=== PATIENT | female | born 1955 | race African-American/Black ===

== ENCOUNTER 2018-11-08 10:38 | Emergency (ER) | payer MEDICARE ==
[~2018-11-08] VITALS: Ht 170.2 cm; Wt 95.3 kg
--- NOTE | 2018-11-08 11:47 | RAD ---
CHEST PA LATERAL Clinical indications: Syncope. COMPARISON: None available. Findings: No acute lung infiltrate or pleural effusion or pulmonary edema or lung mass or pneumothorax is seen. Old granulomatous disease is seen. The heart size, pulmonary vasculature, mediastinum and both tata are otherwise unremarkable. The osseous structures appear intact. Impression: No acute radiographic abnormality is seen. Electronically signed by: Roger Mcdonald MD (11/08/2018 11:44 AM) [id number]
[2018-11-08 11:57] LABS: BASO % 0 % (0-3); EOS # 0.1 x10^3/uL (0.0-0.7); EOS % 1 % (0-3); HEMATOCRIT 42.7 % (36.0-47.0); HEMOGLOBIN 13.6 g/dL (12.0-15.5); LYMPH # 3.3 x10^3/uL (1.0-4.8); LYMPH % 30 % (24-48); MEAN CORPUSCULAR HEMOGLOBIN 23 pg (25-35); MEAN CORPUSCULAR HGB CONC 32 g/dL (31-37); MEAN CORPUSCULAR VOLUME 72 fL (79-100); MONO # 0.8 x10^3/uL (0.0-1.1); MONO % 8 % (0-9); NEUT # 6.7 x10^3uL (1.8-7.7); NEUT % 61 % (31-73); PLATELET COUNT 283 x10^3/uL (140-400); RED BLOOD COUNT 5.92 x10^6/uL (3.50-5.40); RED CELL DISTRIBUTION WIDTH 13.7 % (11.5-14.5)
[2018-11-08 12:07] LABS: CALCIUM 9.8 mg/dL (8.5-10.1); CREATININE 1.1 mg/dL (0.6-1.0); GFR 60.3; POTASSIUM 3.9 mmol/L (3.5-5.1)
[2018-11-08 12:10] VITALS: BP 190/88
[2018-11-08] MEDS: IV NORMAL SALINE 1000ML BAG 1,000 ML IV ONE (12:10)
[2018-11-08 12:13] LABS: ALBUMIN 3.7 g/dL (3.4-5.0); ALBUMIN/GLOBULIN RATIO 0.8 (1.0-1.7); TOTAL BILIRUBIN 0.7 mg/dL (0.2-1.0); TOTAL PROTEIN 8.4 g/dL (6.4-8.2)
[2018-11-08] MEDS ORDERED: AMLO5TAB10 PO (12:38)
--- NOTE | 2018-11-08 12:38 | PHYS DOC ---
Past Medical History Past Medical History: Arthritis, Hypertension Past Surgical History: , Tubal ligation Alcohol Use: None Drug Use: None Adult General Chief Complaint Chief Complaint: SYNCOPE HPI HPI Patient is a 63 year old f who presents after syncopal episode. Patient with multiple complaints 1) patient with URI symptoms 2-3 days. Cough is nonproductive, no fever, no myalgias. Patient is been taking [id number] cold medication. She does not know if they contained Sudafed or other decongestants. #2. Patient reports onset of diffuse abdominal cramping with multiple episodes of diarrhea throughout all day yesterday. States that she also ate something for dinner to increase her nausea and diarrhea. States that she got up to the bathroom in the middle night and had syncopal episode. No head trauma. Unable to get into PCP today so presents the ER. Denies any headaches. Abdominal pain resolved. Has not had any diarrhea for the past few hours. No recent antibiotics. No GI bleed symptoms. Review of Systems Review of Systems Constitutional: Denies fever or chills [] Eyes: Denies change in visual acuity, redness, or eye pain [] HENT: Denies nasal congestion or sore throat [] Respiratory: Denies cough or shortness of breath [] Cardiovascular: No additional information not addressed in HPI [] GI: Denies abdominal pain, nausea, vomiting, bloody stools or diarrhea [] : Denies dysuria or hematuria [] Musculoskeletal: Denies back pain or joint pain [] Integument: Denies rash or skin lesions [] Neurologic: Denies headache, focal weakness or sensory changes [] Endocrine: Denies polyuria or polydipsia [] All other systems were reviewed and found to be within normal limits, except as documented in this note. Current Medications Current Medications Current Medications Medications (Trade) Dose Ordered Sig/Power Start Time Stop Time Status Last Admin Dose Admin Sodium Chloride 1,000 ml @ 1,000 mls/hr 1X ONCE 11/08/18 11:30 11/08/18 12:29 11/08/18 12:10 1,000 MLS/HR Allergies Allergies Allergies Coded Allergies Type Severity Reaction Last Updated Verified No Known Drug Allergies 01/31/14 No Physical Exam Physical Exam Constitutional: Well developed, well nourished, obese HENT: Normocephalic, atraumatic, Eyes: PERRLA, EOMI, Neck: no stridor. [] Cardiovascular:Heart rate regular rhythm, no murmur [] Lungs & Thorax: Bilateral breath sounds clear to auscultation [] Abdomen: Bowel sounds normal, soft, no tenderness, no masses, no pulsatile masses. [] Skin: Warm, dry, no erythema, no rash. [] Extremities: no edema. [] Neurologic: Alert and oriented X 3, no focal deficits noted. [] Psychologic: Affect normal, judgement normal, mood normal. [] Current Patient Data Vital Signs Vital Signs Date Time Temp Pulse Resp B/P (MAP) Pulse Ox O2 Delivery O2 Flow Rate FiO2 11/08/18 10:49 98.8 58 20 188/102 (130) 99 Room Air 98.8 Lab Values Laboratory Tests Test 11/08/18 11:49 White Blood Count 11.0 x10^3/uL (4.0-11.0) Red Blood Count 5.92 x10^6/uL (3.50-5.40) H Hemoglobin 13.6 g/dL (12.0-15.5) Hematocrit 42.7 % (36.0-47.0) Mean Corpuscular Volume 72 fL (79-100) L Mean Corpuscular Hemoglobin 23 pg (25-35) L Mean Corpuscular Hemoglobin Concent 32 g/dL (31-37) Red Cell Distribution Width 13.7 % (11.5-14.5) Platelet Count 283 x10^3/uL (140-400) Neutrophils (%) (Auto) 61 % (31-73) Lymphocytes (%) (Auto) 30 % (24-48) Monocytes (%) (Auto) 8 % (0-9) Eosinophils (%) (Auto) 1 % (0-3) Basophils (%) (Auto) 0 % (0-3) Neutrophils # (Auto) 6.7 x10^3uL (1.8-7.7) Lymphocytes # (Auto) 3.3 x10^3/uL (1.0-4.8) Monocytes # (Auto) 0.8 x10^3/uL (0.0-1.1) Eosinophils # (Auto) 0.1 x10^3/uL (0.0-0.7) Basophils # (Auto) 0.0 x10^3/uL (0.0-0.2) Sodium Level 136 mmol/L (136-145) Potassium Level 3.9 mmol/L (3.5-5.1) Chloride Level 100 mmol/L (98-107) Carbon Dioxide Level 25 mmol/L (21-32) Anion Gap 11 (6-14) Blood Urea Nitrogen 18 mg/dL (7-20) Creatinine 1.1 mg/dL (0.6-1.0) H Estimated GFR (Cockcroft-Gault) 60.3 BUN/Creatinine Ratio 16 (6-20) Glucose Level 103 mg/dL (70-99) H Calcium Level 9.8 mg/dL (8.5-10.1) Total Bilirubin 0.7 mg/dL (0.2-1.0) Aspartate Amino Transferase (AST) 18 U/L (15-37) Alanine Aminotransferase (ALT) 10 U/L (14-59) L Alkaline Phosphatase 67 U/L (46-116) Troponin I Quantitative < 0.017 ng/mL (0.000-0.055) Total Protein 8.4 g/dL (6.4-8.2) H Albumin 3.7 g/dL (3.4-5.0) Albumin/Globulin Ratio 0.8 (1.0-1.7) L Lipase 267 U/L (73-393) Laboratory Tests 11/08/18 11:49 Laboratory Tests 11/08/18 11:49 EKG EKG 11:20: NSR, no acute ST segment changes, [] Radiology/Procedures Radiology/Procedures CXR; No acute findings[] Course & Med Decision Making Course & Med Decision Making Pertinent Labs and Imaging studies reviewed. (See chart for details) []Has remained hypertensive while in the ER. Has history of hypertension and does not monitor at home. Had PCP evaluation of couple months ago and was hypertensive at that time but no medication changes. Has been taking over-the- counter cold medication and cleared these have decongestants. He is asymptomatic regarding her hypertension. Will prescribe amlodipine to take as an as-needed basis and eating to systolic blood pressures greater than 150. Advised patient to continue to monitor blood pressure and to have close follow- up with PCP. Labs been otherwise reassuring with no indication of acute life- threatening process. Chest x-ray with no acute findings. Patient likely has viral URI and combination with GI infection. Discussed supportive care. No further diarrhea while in the ER. Orthostatics with no changes. Advised close follow-up. ER return precautions given. Patient verbalized understanding. All cushions answered. Dragon Disclaimer Dragon Disclaimer This electronic medical record was generated, in whole or in part, using a voice recognition dictation system. Departure Departure Impression: Primary Impression: Syncope Additional Impressions: Diarrhea Cough Hypertension, uncontrolled Disposition: 01 HOME, SELF-CARE Condition: STABLE Referrals: BRIAN GUALLPA MD (PCP) Patient Instructions: Cough, Adult, Diarrhea, [id number], Hypertension Additional Instructions: Thank you for coming to [facility]. Please read the attached handouts. Please follow-up with your primary care physician. Please continue home medications. Please monitor and longer blood pressure once a day for the next few weeks and follow up with her primary care doctor. Please take the prescribed medication only if your systolic blood pressure is 150 or higher in the evening. Return to the ER if your symptoms worsen or you have any other concerns. Scripts Amlodipine Besylate (AMLODIPINE BESYLATE) 5 Mg Tablet 5 MG PO DAILY for If systolic BP more than 150 MDD 1 for 30 Days, #30 TAB Prov: RANDY BENNETT DO 11/08/18 Problem Qualifiers RANDY BENNETT DO Nov 08, 2018 12:38
[2018-11-08] MEDS: LOPERAMIDE 2 MG CAPSULE PO ONE (12:57)
--- NOTE | 2018-11-08 12:59 | EKG ---
[address] [place] [id number] Test Date: 2018-11-08 Test Time: 11:20:12 Pat Name: SHAREE CRAIG Department: Room: Gender: F [employer]: : [id number] Requested By: RANDY BENNETT Order Number: [id number] Reading MD: Measurements Intervals [place] Rate: 50 P: 57 NH: 188 QRS: 59 QRSD: 68 T: 66 QT: 452 QTc: 415 Interpretive Statements SINUS RHYTHM NO SPECIFIC ECG ABNORMALITIES RI6.01 No previous ECG available for comparison
== END 2018-11-08 13:00 | disposition home or self-care (01) ==
LOC: ER 10:38
DX: R55 Syncope and collapse (principal); R05 Cough; R19.7 Diarrhea, unspecified; I10 Essential (primary) hypertension; Z98.51 Tubal ligation status
CPT/HCPCS: 36415; 71046; 80053; 83690; 84484; 85025; 93005; 96360; 99284; J7030